=== PATIENT | male | born 1970 | race Caucasian/White ===

== ENCOUNTER → 2018-09-12 | Outpatient (CLI) | payer OTHER ==
--- NOTE | 2018-09-12 19:55 | KCIC ---
Pelvis and left Two View hip: Clinical History: Pain. Technique: AP view the pelvis AP and frog leg views of the left hip were obtained. Comparison: None. Findings: There is obscuration of bony detail of sacrum due to overlying bowel gas. The visualized osseous structures appear normal. The femoral acetabular relationship is normal. Impression: No acute findings. Electronically signed by: Bernard Sanchez III, MD (09/12/2018 7:52 PM) [facility]
== END | disposition home or self-care (01) ==
LOC: KCIC 13:08
PROVIDERS: ATTEND Physician Assistant Medical
DX: M25.552 Pain in left hip (principal)
CPT/HCPCS: 73502

== ENCOUNTER → 2018-09-15 | Outpatient (CLI) | payer OTHER ==
--- NOTE | 2018-09-15 11:27 | RAD ---
Examination: EXT NON VASC LEFT History: DX: Left Groin mass IMP: 2 abnormal looking lymph nodes with thicked cortex. normal nodes medial to area of interest Comparison/Correlation: None Findings: Ultrasound imaging of the left groin was performed. There are 2 lymph nodes which are identified to have markedly thickened cortices present. Additional lymph nodes are small and normal in appearance. The largest of the lymph nodes measures 3.9 cm x 1.3 cm x 1.4 cm. Cortical thickness of up to 1.9 cm present. The second of the largest lymph nodes measures 2.4 cm x 2.1 cm x 1.5 cm. Cortical thickening of up to 0.8 cm noted. No abnormal flow on color Doppler imaging. No loculated collections along the left groin. Impression: There are 2 enlarged left groin lymph nodes. Correlate for underlying infectious, inflammatory or possibly neoplastic process. Correlate clinically in determining interval follow-up to assess change. Electronically signed by: Rafa Vega MD (09/15/2018 11:24 AM) [facility]
== END | disposition home or self-care (01) ==
LOC: US 10:36
PROVIDERS: ATTEND Physician Assistant Medical
DX: R19.09 Other intra-abdominal and pelvic swelling, mass and lump (principal)
CPT/HCPCS: 76881